=== PATIENT | male | born 1955 ===

== ENCOUNTER 2019-07-22 12:20 | Inpatient (IN) | payer OTHER ==
[2019-07-22 12:44] LABS: #Eosinphils 0.1 thou/uL (0.0-0.7); #Lymphocytes 1.2 thou/uL (1.20-3.40); #Monocytes 1.1 thou/uL (0.11-0.59); #Neutrophils 9.2 thou/uL (1.40-6.50); %Basophils 0.1 % (0.0-1.0); %Eosinophils 0.5 % (0.0-10.0); %Lymphocytes 10.2 % (21.0-51.0); %Monocytes 9.2 % (0.0-10.0); %Neutrophils 79.9 % (42.0-75.0); Hemoglobin 13.5 g/dL (14.0-18.0); Mean Corpuscular HGB CONC 34.8 g/dL (32.0-36.0); Mean Corpuscular Hemoglobin 35.4 pg (27.0-31.0); Mean Platelet Volume 8.1 fL (7.4-10.4); Platelet Count 160 thou/uL (130-400); RBC Distribution Width 14.1 % (11.5-14.5); Red Blood Cell (RBC) Count 3.81 mill/uL (4.70-6.10); White Blood Cell (WBC) Count 11.6 thou/uL (4.8-10.8)
--- NOTE | 2019-07-22 12:48 | RAD ---
XR Chest 1 View Portable History: Chest pain and back pain Comparison: Radiograph 2011 Findings: Heart size is enlarged. No pneumothorax. No confluent airspace consolidation. No acute osse ous abnormality. Impression: Mild cardiomegaly otherwise unremarkable exam.
[2019-07-22 13:28] LABS: ALT (SGPT) 22 U/L (8-55); AST (SGOT) 22 U/L (5-34); Albumin 3.5 g/dL (3.4-4.8); Alkaline Phosphatase 59 U/L (40-110); Anion Gap 23 mmol/L (10-20); BUN (Urea Nitrogen) 53 mg/dL (8.4-25.7); Bilirubin, Total 0.4 mg/dL (0.2-1.2); CK (CPK) 341 U/L (30-200); Calc. Creatinine Clearance 0 mL/min (70-130); Calcium 7.2 mg/dL (7.8-10.44); Carbon Dioxide 19 mmol/L (23-31); Chloride 90 mmol/L (98-107); Estimated GFR-MDRD 8; Globulin 2.9 g/dL (2.4-3.5); Glucose 97 mg/dL (80-115); Lipase 24 U/L (8-78); Potassium 3.9 mmol/L (3.5-5.1); Protein, Total 6.4 g/dL (5.8-8.1); Sodium 128 mmol/L (136-145)
[2019-07-22] MEDS ORDERED: Aspirin Chewable 81 MG TAB ONE (15:35)
[2019-07-22] MEDS ORDERED: Calcium Carbonate 500 MG ChewTAB PO PRN (18:09)
[2019-07-22] MEDS ORDERED: Ondansetron PF 4 MG/2 ML Vial IVP PRN (18:09)
[2019-07-22] MEDS ORDERED: Acetaminophen 325 MG TAB PO PRN (18:09)
[2019-07-22] MEDS ORDERED: Sodium Chloride 0.9% 1,000 ML IV SCH (18:15)
[2019-07-22] MEDS: Sodium Chloride 0.9% 1,000 ML IV SCH (18:22)
[2019-07-22 19:01] LABS: Troponin I Less than 0.010 ng/mL (< 0.028)
--- NOTE | 2019-07-22 19:01 | ULT ---
US Renal Bilateral STANDARD: 07/22/2019 6:09 PM CLINICAL HISTORY: Renal failure. STUDY: Renal ultrasound COMPARISON: None. FINDINGS: Right kidney: Echogenicity: Normal. Masses/cysts: None. Hydronephrosis: None. Calcifications: None. Length: 12.5 cm Left kidney: Echogenicity: Normal. Masses/cysts: None. Hydronephrosis: None. Calcifications: None. Length: 11.3 cm Limited visualization of the urinary bladder is unremarkable. IMPRESSION: Unremarkable renal ultrasound
[2019-07-22] MEDS: Mometasone/Formoterol 120 PUFF INHALER INH SCH (19:47)
--- NOTE | 2019-07-22 21:01 | HP ---
PRIMARY CARE PHYSICIAN: Dr. Correia. CHIEF COMPLAINT: "I had pain in my back." HISTORY OF PRESENT ILLNESS: Mr. Andrade is a very pleasant 63-year-old gentleman, who has a history of coronary artery disease. He said he had 4 stents and the last heart attack was about 8 years ago. He says that on Saturday, he started having some stabbing-like pain in his back. He rated it about 8/10 and it felt achy. He says it was like his first myocardial infarction. He says that he was also feeling a little bit confused over the past 2 days. He also complains of a cough, which has been more or less nonproductive, but no fevers, no chills. He says he has not been feeling well over the last few days as well and has not had much oral intake. As a result of the back pain, which he was concerned could be due to coronary artery disease, he came to the ER for evaluation. In the ER, he was found to be in acute renal failure with a BUN of 53 and a creatinine of 7.07, and he also had an elevated D-dimer and for this reason, he is being admitted for further evaluation. REVIEW OF SYSTEMS: All systems were reviewed and are negative except for that mentioned in the history of present illness. PAST MEDICAL HISTORY: Significant for coronary artery disease. He had his last KS about 8 years ago. He also has a history of neuropathy, which he says he is not really sure of the etiology. He also has a history of previous hyponatremia. PAST SURGICAL HISTORY: He has had 4 stents placed. ALLERGIES: NO KNOWN DRUG ALLERGIES. SOCIAL HISTORY: He has been twice and he is currently . He smokes about a pack a day for the last 40 years. He also says he drinks about a pint of Ben beam daily. He works in the [employer] and he is a full code. CURRENT MEDICATIONS: Include; 1. Lisinopril 20 mg daily. 2. Amlodipine 150 mg daily. PHYSICAL EXAMINATION: GENERAL: He is alert and oriented. He appears to be in no acute distress. He is well developed and well nourished, although he is chronically fatigued in appearance. VITAL SIGNS: His blood pressure was 100/55, heart rate 100, respiratory rate of 16, temperature is 97.9. HEENT: Pupils are equal, round, and reactive to light. Extraocular muscles are intact. Sclerae anicteric. Throat, he does have mildly dry mucous membranes. No erythema. No exudates. NECK: There is no adenopathy. No bruits. LUNGS: He has diffuse wheezing throughout his entire lung gomez bilaterally. There is no rales, no rhonchi. CARDIOVASCULAR: He has a normal S1, S2. There is no S3 or S4. No murmurs, clicks, or rubs. ABDOMEN: Obese, it is soft, nontender, and nondistended. Positive for bowel sounds. There is no rebound, no guarding, no organomegaly. EXTREMITIES: There is no clubbing or cyanosis. No edema. No calf tenderness. No joint effusions. NEUROLOGIC: His cranial nerves 2 through 12 are grossly intact. Muscle strength is 5/5 in both his upper and lower extremities. SKIN AND INTEGUMENT: There are no skin changes. No rash. LABORATORY DATA: His D-dimer was elevated at 0.53. On his CBC, the white blood cell count 11.6, hemoglobin 13.5, hematocrit is 38.8, and platelet count is 160. Sodium is 128, potassium 3.9, chloride is 90, CO2 is 19, BUN of 53, creatinine of 7.07, glucose is 97. Troponin is less than 0.010. He had a chest x-ray, which by my reading looks like he has slightly widened mediastinum. Heart size is borderline cardiomegaly and there is no effusions or infiltrates and this is by my reading. The patient also had an EKG, which was sinus rhythm and there was no ST wave changes. ASSESSMENT: This is a pleasant 63-year-old gentleman, who presents to the emergency room with back pain. He says it was like angina he has had in the past. It got better after they administered oxygen. However, his troponins are negative and there is no EKG changes, more concerning is the elevated D-dimer. 1. For back pain, we would like to rule out pulmonary embolism in this gentleman and unfortunately his creatinine is elevated, so therefore we will do a ventilation perfusion scan in the a.m. We will hold off on any anticoagulation at this time. 2. Acute kidney injury. It is unclear whether or not this is acute on chronic or acute. The patient says he had blood work done in April. At that time, his sodium was low, but there was no mention of any kidney issues. Therefore, the assumption is that this is acute. The etiology of which is unclear based on his history, but I suspect it could be due to prerenal azotemia due to poor oral intake and him being on the lisinopril. We will check urine electrolytes to calculate a fractional excretion of sodium, get a renal ultrasound. Place him empirically on IV hydration and consult Nephrology. 3. Probable chronic obstructive pulmonary disease. He has significant wheezing on exam. He has a long history of smoking. We will therefore place him on some DuoNebs and empirically on a long-acting beta agonist and see if this will help with his symptoms. 4. Hyponatremia. I suspect this is due to volume depletion. We will check the urine osmolality and serum osmolality and see the effect with hydration and further recommendations to follow. Job ID: [id number]
[2019-07-22] MEDS: Heparin 5,000 UNITS/ML VIAL SC SCH (21:10)
[2019-07-22 21:35] VITALS: BMI 29.9
[2019-07-22 22:14] LABS: Potassium, Urine 19.3 mmol/L
[2019-07-23] MEDS ORDERED: FLU VACC QS2019-20(6MOS UP)/PF 60 MCG/0.5 ML SYRINGE IM ONE ×2 (01:45→09:00)
[2019-07-23] MEDS: Sodium Chloride 0.9% 1,000 ML IV SCH ×2 (02:15→11:17)
[2019-07-23 05:04] LABS: #Lymphocytes 0.9 thou/uL (1.20-3.40); #Monocytes 0.7 thou/uL (0.11-0.59); #Neutrophils 6.2 thou/uL (1.40-6.50); %Eosinophils 0.6 % (0.0-10.0); %Lymphocytes 11.7 % (21.0-51.0); %Monocytes 8.9 % (0.0-10.0); %Neutrophils 78.8 % (42.0-75.0); Hemoglobin 12.7 g/dL (14.0-18.0); Mean Corpuscular HGB CONC 33.6 g/dL (32.0-36.0); Mean Corpuscular Hemoglobin 34.5 pg (27.0-31.0); Mean Platelet Volume 8.2 fL (7.4-10.4); Platelet Count 136 thou/uL (130-400); Red Blood Cell (RBC) Count 3.69 mill/uL (4.70-6.10); White Blood Cell (WBC) Count 7.8 thou/uL (4.8-10.8)
[2019-07-23 05:25] LABS: Anion Gap 17 mmol/L (10-20); BUN (Urea Nitrogen) 50 mg/dL (8.4-25.7); Calc. Creatinine Clearance 30 mL/min (70-130); Calcium 6.9 mg/dL (7.8-10.44); Carbon Dioxide 18 mmol/L (23-31); Chloride 102 mmol/L (98-107); Estimated GFR-MDRD 16; Glucose 91 mg/dL (80-115); Sodium 133 mmol/L (136-145)
[2019-07-23] MEDS ORDERED: traMADol HCl 50 MG TAB PO SCH (06:00)
[2019-07-23] MEDS: Mometasone/Formoterol 120 PUFF INHALER INH SCH ×2 (07:30→18:56)
--- NOTE | 2019-07-23 09:11 | NM ---
NUCLEAR MEDICINE VENTILATION/PERFUSION SCAN: (V/Q scan) DATE: 07/23/2019 HISTORY: 63-year-old male with elevated d-dimer and chest pain TECHNIQUE: Xenon-133 gas dose: 16.9 mCi Technetium 99m-MAA dose: 6.5 mCi The patient inhaled xenon-133 gas, and dynamic ventilation scintigraphy was performed. Technetium 99m -MAA was injected IV, and multiple perfusion scintigraphic images were obtained. FINDINGS: There are no moderate sized or large perfusion defects. There are no significant ventilation/perfusio n mismatches. IMPRESSION: Low probability for pulmonary thromboembolism.
[2019-07-23] MEDS ORDERED: Calcium Carbonate 500 MG TAB PO SCH (09:15)
[2019-07-23] MEDS: Heparin 5,000 UNITS/ML VIAL SC SCH ×3 (09:17→20:41)
[2019-07-23] MEDS ORDERED: Ergocalciferol 1.25 MG(50,000 UNITS) CAP PO SCH (11:00)
--- NOTE | 2019-07-23 11:44 | PDOC.HOSPP ---
- Subjective Encounter Date: 07/23/19 Encounter Time: 11:43 Subjective: Mr. Andrade was seen today in follow-up of acute renal failure and probable COPD. He says he does not feel much better. He says he feels tired and has poor appetite. - Objective Vital Signs & Weight: Vital Signs (12 hours) Temp Pulse Resp BP Pulse Ox 07/23/19 11:37 97.2 F L 98 22 H 129/65 97 07/23/19 07:31 97.7 F 99 18 120/68 99 07/23/19 07:30 99 18 92 L 07/23/19 04:00 97.5 F L 99 20 121/65 98 07/22/19 23:50 98.2 F 99 19 127/75 95 Weight Weight 226 lb 14.4 oz I&O: 07/22/19 07/23/19 07/24/19 06:59 06:59 06:59 Intake Total 1805 Output Total 2425 Balance -620 Result Diagrams: 07/23/19 04:53 07/23/19 04:53 Hospitalist ROS - Medication Medications: Active Medications Generic Name Dose Route Start Last Admin Trade Name Freq PRN Reason Stop Dose Admin Albuterol/Ipratropium 3 ml 07/22/19 19:00 07/23/19 07:30 Duoneb NEB 3 ml [id number] MIKE Administration Ergocalciferol 1.25 mg 07/23/19 11:00 07/23/19 11:17 Drisdol PO 07/23/19 13:00 1.25 mg NOW MIKE Administration Heparin Sodium (Porcine) 5,000 units 07/22/19 21:00 07/23/19 09:17 Heparin SC 5,000 units TID MIKE Administration Sodium Chloride 1,000 mls @ 125 mls/hr 07/22/19 18:09 07/23/19 11:17 Normal Saline 0.9% IV 1,000 mls .Q8H MIKE Administration Mometasone Furoate/Formoterol Fumar 1 puff 07/22/19 18:30 07/23/19 07:30 Dulera 200 Mcg/5 Mcg Inhaler INH 1 puff BID-RT MIKE Administration Sodium Chloride 10 ml 07/23/19 09:00 07/23/19 09:19 Flush - Normal Saline IVF 10 ml Q12HR MIKE Administration - Exam Eye: PERRL Heart: RRR, no murmur, no gallops, no rubs, normal peripheral pulses Respiratory: wheezes (tight wheezing bilaterally no rhonchi no rales) Gastrointestinal: soft, non-tender, non-distended, normal bowel sounds, no palpable masses, no hepatomegaly Extremities: no cyanosis, no clubbing, no edema, 1+ LE edema Hosp A/P (1) Acute renal failure Status: Acute (2) Acute respiratory failure with hypoxemia Code(s): J96.01 - ACUTE RESPIRATORY FAILURE WITH HYPOXIA Status: Acute (3) COPD (chronic obstructive pulmonary disease) Status: Acute (4) CAD (coronary artery disease) Code(s): I25.10 - ATHSCL HEART DISEASE OF [place] CORONARY ARTERY W/O ANG PCTRS Status: Acute - Plan * Acute renal failure- his renal function has improved with hydration. I suspect he may have some component of chronic renal failure as well, renal ultrasound was negative for obstruction. Will continue IV fluids, and await Nephrology evaluation * Acute ( on chronic respiratory failure) suspect COPD from long time smoking- will continue Duonebs, and inhaled steroids- may need to give a dose of IV steroids as well * He may also need screening for sleep apnea- which was discussed with the patient * CAD- await Echo * VQ scan was low probability * Hypovitaminosis D and hypocalcemia- start Drisdol, and calcium supplement
[2019-07-23] MEDS: Calcium Carbonate 500 MG TAB PO SCH (17:32)
[2019-07-23] MEDS: methylPREDNISolone Sod Succ/PF 125 MG/2 ML VIAL IVP SCH ×2 (17:32→23:45)
--- NOTE | 2019-07-23 17:49 | CON ---
DATE OF CONSULTATION: CONSULTING PHYSICIAN: Prema Benavides MD REQUESTING PHYSICIAN: Dr. Agustin Nuñez. REASON FOR CONSULTATION: Acute kidney injury. IMPRESSION: 1. Acute kidney injury, this is likely in the context of intravascular depletion in the patient who is on angiotensin-converting enzyme inhibitor as well as nonsteroidal anti-inflammatory drugs. Combination of these risk factors almost guarantees renal shutdown. 2. Hypovitaminosis D. 3. Secondary hyperparathyroidism with hypocalcemia, likely in the context of problem #1 above. 4. Tobacco dependence. PLAN: 1. Gentle rehydration will begin to deescalate this patient's IV fluids. 2. Counseled on the need to avoid nonsteroidal anti-inflammatory drugs, especially the patient is ever going to go back on INES inhibitor. 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 3. Counseled on the need to discontinue tobacco abuse. 4. Further management to be dependent on the clinical course. Meanwhile, the patient to be placed on 50,000 units of vitamin D supplementation. HISTORY OF PRESENT ILLNESS: History is that of 63-year-old gentleman, who according to the daughter has not been eating very well, lately presented here with what he thought to be heart attack, but was noted to have severe acute kidney injury with creatinine of above 7. The patient had been rehydrated overnight with a creatinine dropping down to about 3.7. The need for renal consultation arose because of the severe acute kidney injury. The patient has been taking nonsteroidal anti-inflammatory drugs, morphine 3 to 4 times a day and the patient also on INES inhibitor. The patient eating very well and drinking very well. Combination of these may have triggered this renal shutdown. PAST MEDICAL HISTORY: Significant for coronary artery disease status post multiple stents and tobacco dependence, previous history of hyponatremia. ALLERGIES: NO KNOWN DRUG ALLERGIES. SOCIAL HISTORY: Significant for tobacco use. Works in the [employer]. MEDICATIONS: Reviewed as documented on [facility]. FAMILY HISTORY: Not significantly related to present illness. REVIEW OF SYSTEMS: As documented in the body of the history. PHYSICAL EXAMINATION: GENERAL: The patient was found not to be in any obvious disease, but visibly wheezing. VITAL SIGNS: Noted with the following vital signs; afebrile, temperature 97.2, pulse 98, respiratory rate of 22, O2 saturation of 97% on 3 L, and blood pressure 129/65. HEENT: Unremarkable. CARDIOVASCULAR SYSTEM: First and second heart sounds were heard. RESPIRATORY SYSTEM: Revealed diffuse rhonchi. DIGESTIVE SYSTEM: Revealed a benign abdomen. EXTREMITIES: No peripheral edema. SKIN: No new gross rash. LYMPHATICS: No peripheral lymphadenopathy. SUMMARY: A 63-year-old gentleman, who presented here with acute kidney injury. Thank you for this consultation. We will follow with you. Job ID: [id number]
[2019-07-24] MEDS: methylPREDNISolone Sod Succ 40 MG VIAL IVP SCH ×2 (06:05→12:28)
[2019-07-24] MEDS: Mometasone/Formoterol 120 PUFF INHALER INH SCH (06:33)
[2019-07-24] MEDS: Heparin 5,000 UNITS/ML VIAL SC SCH (09:11)
[2019-07-24] MEDS: Calcium Carbonate 500 MG TAB PO SCH (09:11)
[2019-07-24 09:57] LABS: #Lymphocytes 0.4 thou/uL (1.20-3.40); #Monocytes 0.1 thou/uL (0.11-0.59); #Neutrophils 3.9 thou/uL (1.40-6.50); %Eosinophils 0.3 % (0.0-10.0); %Lymphocytes 8.3 % (21.0-51.0); %Monocytes 2.1 % (0.0-10.0); %Neutrophils 89.3 % (42.0-75.0); Mean Platelet Volume 8.3 fL (7.4-10.4); Platelet Count 149 thou/uL (130-400); RBC Distribution Width 13.9 % (11.5-14.5); Red Blood Cell (RBC) Count 3.71 mill/uL (4.70-6.10); White Blood Cell (WBC) Count 4.3 thou/uL (4.8-10.8)
[2019-07-24 10:29] LABS: Anion Gap 12 mmol/L (10-20); BUN (Urea Nitrogen) 20 mg/dL (8.4-25.7); Calc. Creatinine Clearance 123 mL/min (70-130); Calcium 8.2 mg/dL (7.8-10.44); Carbon Dioxide 23 mmol/L (23-31); Chloride 107 mmol/L (98-107); Estimated GFR-MDRD 85; Glucose 166 mg/dL (80-115); Potassium 4.4 mmol/L (3.5-5.1); Sodium 138 mmol/L (136-145)
--- NOTE | 2019-07-24 11:37 | PDOC.HOSPP ---
- Subjective Encounter Date: 07/24/19 Encounter Time: 11:33 Subjective: Mr. Andrade was seen today in follow-up of acute renal failure, and probable COPD exacerbation. He is feeling much better, and wants to go home. - Objective Vital Signs & Weight: Vital Signs (12 hours) Temp Pulse Resp BP Pulse Ox 07/24/19 07:59 97.8 F 104 H 18 159/78 H 96 07/24/19 07:50 96 07/24/19 06:33 98 07/24/19 06:32 107 H 19 93 L 07/24/19 04:00 97.5 F L 105 H 18 123/59 L 97 Weight Weight 225 lb 3 oz I&O: 07/23/19 07/24/19 07/25/19 06:59 06:59 06:59 Intake Total 1805 3170 Output Total 2425 2250 Balance -620 920 Result Diagrams: 07/24/19 09:40 07/24/19 09:40 Hospitalist ROS - Medication Medications: Active Medications Generic Name Dose Route Start Last Admin Trade Name Freq PRN Reason Stop Dose Admin Acetaminophen 650 mg 07/22/19 18:09 07/23/19 14:26 Tylenol PO 650 mg Q4H PRN Administration Headache/Fever/Mild Pain (1-3) Albuterol/Ipratropium 3 ml 07/22/19 19:00 07/24/19 06:32 Duoneb NEB 3 ml [id number] MIKE Administration Amitriptyline HCl 150 mg 07/23/19 21:00 07/23/19 20:41 Elavil PO 150 mg QPM MIKE Administration Calcium Carbonate 500 mg 07/23/19 17:00 07/24/19 09:11 Oscal-500 PO 500 mg BID-WM MIKE Administration Heparin Sodium (Porcine) 5,000 units 07/23/19 21:00 07/24/19 09:11 Heparin SC 5,000 units BID MIKE Administration Methylprednisolone Sodium Succinate 40 mg 07/24/19 06:00 07/24/19 06:05 Solu-Medrol IVP 40 mg Q6HR MIKE Administration Mometasone Furoate/Formoterol Fumar 1 puff 07/22/19 18:30 07/24/19 06:33 Dulera 200 Mcg/5 Mcg Inhaler INH 1 puff BID-RT MIKE Administration Sodium Chloride 10 ml 07/23/19 09:00 07/24/19 09:11 Flush - Normal Saline IVF 10 ml Q12HR MIKE Administration - Exam Eye: PERRL Heart: RRR, no murmur, no gallops, no rubs, normal peripheral pulses Respiratory: CTAB, no rales, no ronchi, normal chest expansion, no tachypnea, normal percussion, wheezes Gastrointestinal: soft, non-tender, non-distended, normal bowel sounds, no palpable masses, no hepatomegaly Extremities: no cyanosis, no clubbing, no edema Hosp A/P (1) Acute renal failure Status: Acute (2) Acute respiratory failure with hypoxemia Code(s): J96.01 - ACUTE RESPIRATORY FAILURE WITH HYPOXIA Status: Acute (3) COPD (chronic obstructive pulmonary disease) Status: Acute (4) CAD (coronary artery disease) Code(s): I25.10 - ATHSCL HEART DISEASE OF [place] CORONARY ARTERY W/O ANG PCTRS Status: Acute - Plan * Acute renal failure- due to re-renal azotemia- completely resolved * Acute ( on chronic respiratory failure) suspect COPD from long time smoking- will continue Duonebs, and inhaled steroids- may need to give a dose of IV steroids as well * He may also need screening for sleep apnea- which was discussed with the patient * CAD- Echo demonstrates diastolic dysfunction * Hypovitaminosis D- he likely will only need a very short course of the Vitamin D
[2019-07-24 12:27] VITALS: BP 165/87; TEMP 97.6
--- NOTE | 2019-07-24 12:43 | DIS ---
DATE OF ADMISSION: 07/22/2019 DATE OF DISCHARGE: 07/24/2019 PRIMARY CARE PHYSICIAN: Dr. Chen. DISCHARGE DISPOSITION: Home. PRIMARY DISCHARGE DIAGNOSES: 1. Acute kidney injury due to prerenal azotemia, resolved. 2. Hypertension. 3. Probable chronic obstructive pulmonary disease. 4. Possible sleep apnea. DISCHARGE MEDICATIONS: 1. Please note that lisinopril was changed to amlodipine due to the acute kidney injury. 2. Drisdol 1.25 mg every seven days, just three more tablets. 3. Nicotrol inhaler as needed. 4. Tramadol 50 mg q.6 as needed. 5. Gabapentin 150 mg as directed. 6. Vitamin B12 2500 mcg daily. 7. Amitriptyline 150 mg q.p.m. PROCEDURES DONE: During admission, the patient had a renal ultrasound which was negative for any evidence of hydronephrosis or blockage. The patient had a perfusion scan which was low probability for PE. The patient also had an echocardiogram in which the ejection fraction was estimated at 60% to 65%. There was grade 1/3 diastolic dysfunction. CODE STATUS: Full code. ALLERGIES: LATEX AND RUBBER. HOSPITAL COURSE: Mr. Andrade is a pleasant 63-year-old gentleman who presented to the emergency room, feeling generally weak and tired and having some back pain. He was concerned that he could be having angina. However, it was found that he was in acute kidney injury with a creatinine of 7. He was admitted and started on IV fluids. It was felt that the acute kidney failure was likely prerenal azotemia and was started on IV fluids. Nephrology was consulted due to the degree of renal insufficiency. His renal function improved all the way back to normal. Due to his type of work, it is probably best that he not be on an INES inhibitor or ARB, and this has been changed to amlodipine. He also had low vitamin D levels, which was supplemented during his hospital stay. He also has significant wheezing on exam and has a long history of smoking and will be discharged home on a Combivent inhaler and has been urged to get pulmonary function test in the outpatient setting. Also, I suspect he may have some undiagnosed sleep apnea as well as he complains of being chronically fatigued all the time, and we also discussed possible outpatient sleep study. The patient is clinically improved and can be discharged home today. Job ID: [id number]
[2019-07-30] MEDS ORDERED: Ergocalciferol 1.25 MG(50,000 UNITS) CAP PO SCH (09:00)
== END 2019-07-24 13:35 | disposition home or self-care (01) | DRG 682 ==
LOC: ERS 12:20 → 2NO 15:26
PROVIDERS: ADMIT Internal Medicine; ATTEND Internal Medicine
DX: N17.9 Acute kidney failure, unspecified (principal); J96.01 Acute respiratory failure with hypoxia; E87.1 Hypo-osmolality and hyponatremia; J44.9 Chronic obstructive pulmonary disease, unspecified; I25.10 Atherosclerotic heart disease of native coronary artery without angina pectoris; E83.51 Hypocalcemia; N18.9 Chronic kidney disease, unspecified; N25.81 Secondary hyperparathyroidism of renal origin; G62.9 Polyneuropathy, unspecified; F17.210 Nicotine dependence, cigarettes, uncomplicated; Z95.5 Presence of coronary angioplasty implant and graft; I25.2 Old myocardial infarction
CPT/HCPCS: 36415; 71045; 76770; 78582; 80048; 80053; 81003; 82306; 82550; 82570; 83690; 83880; 83930; 83935; 83970; 84133; 84300; 84484; 84540; 84550; 85025; 85379; 90471; 90686; 93005; 93306; 94640; 94664; 94760; 96360; A9540; A9558; G0008; J1644; J2920; J2930; J7620